=== PATIENT | male | born 1995 ===

== ENCOUNTER 2020-12-19 06:45 | Day surgery (SDC) | payer OTHER | END 2020-12-19 18:26 | disposition home or self-care (01) | LOC: CIR.AMB 06:45 | PROVIDERS: ATTEND Colon & Rectal Surgery | DX: K64.8 Other hemorrhoids (principal); Z20.822 Contact with and (suspected) exposure to COVID-19 ==

== ENCOUNTER 2020-12-20 15:22 | Emergency (ER) | payer OTHER ==
[~2020-12-20] VITALS: Ht 165.1 cm; Wt 81.6 kg
== END 2020-12-20 20:20 | disposition home or self-care (01) ==
LOC: ER 15:22
DX: N99.89 Other postprocedural complications and disorders of genitourinary system (principal); R33.8 Other retention of urine